=== PATIENT | female | born 1935 | race Caucasian/White ===

== ENCOUNTER 2017-06-22 10:30 | Outpatient (RCR) | payer MEDICARE, OTHER | END 2017-07-11 | disposition home or self-care (01) | LOC: WCC 10:30 | DX: L97.822 Non-pressure chronic ulcer of other part of left lower leg with fat layer exposed (principal); L97.811 Non-pressure chronic ulcer of other part of right lower leg limited to breakdown of skin; E11.622 Type 2 diabetes mellitus with other skin ulcer; I87.2 Venous insufficiency (chronic) (peripheral); I10 Essential (primary) hypertension; Z79.82 Long term (current) use of aspirin | CPT/HCPCS: 29580; G0463 ==

== ENCOUNTER 2017-06-25 12:58 | Outpatient (CLI) | payer MEDICARE, OTHER ==
--- NOTE | 2017-06-28 23:13 | Diagnostic Imaging Report ---
APPROVED REPORT CPT Code: 74624 Symptoms Non-healing Ulcer : Bilaterally RIGHT LEG: Common femoral artery waveform analysis is within normal limits at rest. Color flow duplex sonography reveals calcification throughout the superficial femoral artery. There is no evidence of significant occlusion within this segment. A mild (40-49%) stenosis is seen in the distal superficial femoral artery. The popliteal artery is patent. The tibioperoneal trunk was not well visualized. The distal posterior, anterior and dorsalis pedis arteries are also mildly calcified. Ankle Brachial Index was unobtainable due to ulcers. The Doppler tibial artery waveform analysis is compatible with moderate ischemia at rest. LEFT LEG: Common femoral artery waveform analysis is within normal limits at rest. Color flow duplex sonography reveals calcification throughout the superficial femoral artery. There is no evidence of significant occlusion within this segment. A mild (30%) stenosis is seen in the distal superficial femoral artery. The popliteal artery is patent. The tibioperoneal trunk was not well visualized. The distal posterior, anterior and dorsalis pedis arteries are also mildly calcified. Ankle Brachial Index was unobtainable due to ulcers. The Doppler tibial artery waveform analysis is compatible with moderate ischemia at rest.
--- NOTE | 2017-06-28 23:14 | Diagnostic Imaging Report ---
APPROVED REPORT CPT Code: 16765 Present Symptoms Comments: Hx of BLE ulcers BILATERAL: Imaging reveals a patent deep venous system bilaterally. There is no evidence of thrombus within the femoral, popliteal or tibial segments. The greater saphenous veins are also within normal limits. Doppler indicates normal spontaneous flow within these segments. Venous reflux study: Bilateral deep and superficial venous system is evaluated for venous reflux study. There is an evidence of venous reflux within the deep and superficial venous system. The reflux was lasted longer than 0.5 seconds in the common femoral, popliteal, and greater saphenous veins. Technically difficult study due to pain ([id number] thigh and calf area).
== END 2017-06-25 14:58 | disposition home or self-care (01) ==
LOC: VAS 12:58
DX: L97.929 Non-pressure chronic ulcer of unspecified part of left lower leg with unspecified severity (principal); L97.919 Non-pressure chronic ulcer of unspecified part of right lower leg with unspecified severity
CPT/HCPCS: 93925; 93970

== ENCOUNTER 2018-01-18 10:07 | Outpatient (RCR) | payer MEDICARE, OTHER ==
[2018-02-01] MEDS ORDERED: NORVASC10 MG ORAL (13:41)
[2018-02-01] MEDS ORDERED: ASPIRIN-LOW81 MG ORAL (13:41)
[2018-02-01] MEDS ORDERED: CLONIDINE HCL0.1 MG PO (13:41)
[2018-02-01] MEDS ORDERED: magnesium oxide PO (13:41)
[2018-02-01] MEDS ORDERED: bistolic PO (13:41)
[2018-02-01] MEDS ORDERED: NAXIUM PO (13:41)
[2018-02-01] MEDS ORDERED: TRULICITY1.5 MG/0.5 SQ (13:41)
[2018-02-01] MEDS ORDERED: BACLOFEN10 MG ORAL (13:41)
[2018-02-01] MEDS ORDERED: FOLIC ACID1 M1 PO (13:41)
[2018-02-01] MEDS ORDERED: LASIX40 MG ORAL (13:41)
[2018-02-01] MEDS ORDERED: ULORIC40 MG ORAL (13:41)
[2018-02-01] MEDS ORDERED: VITAMIN B COMP1 EAC2 ORAL (13:41)
[2018-02-01] MEDS ORDERED: LEVEMIR FL100 UNIT/2 SQ (13:41)
[2018-02-01] MEDS ORDERED: VITAMIN D1000 UNI1 ORAL (13:41)
[2018-02-01] MEDS ORDERED: CRESTOR10 M2 ORAL (13:41)
[2018-02-01] MEDS ORDERED: WELLBUTRIN XL150 M1 ORAL (13:41)
[2018-02-01] MEDS ORDERED: TRADJENTA5 MG PO ×2 (13:41→19:40)
[2018-02-01] MEDS ORDERED: FETZIMA40 MG PO (13:41)
[2018-02-01] MEDS ORDERED: GLIPIZIDE10 MG PO (13:41)
[2018-02-01] MEDS ORDERED: potassium PO (13:41)
[2018-02-01] MEDS ORDERED: [UNRECOGNIZED DRUG - OTHER] PO (13:41)
[2018-02-01] MEDS ORDERED: NEXIUM40 MG ORAL (19:40)
[2018-02-04] MEDS ORDERED: DOXYCYCLINE MO100 M2 PO (12:22)
== END 2018-02-08 | disposition home or self-care (01) ==
LOC: WCC 10:07
DX: L03.115 Cellulitis of right lower limb (principal); L03.116 Cellulitis of left lower limb; E11.9 Type 2 diabetes mellitus without complications; I10 Essential (primary) hypertension; S81.801A Unspecified open wound, right lower leg, initial encounter; X58.XXXA Exposure to other specified factors, initial encounter; Z79.82 Long term (current) use of aspirin
CPT/HCPCS: G0463 ×3

== ENCOUNTER 2018-02-01 11:34 | Inpatient (IN) | payer MEDICARE, OTHER ==
[~2018-02-01] VITALS: Ht 149.9 cm; Wt 92.1 kg
[2018-02-01 12:15] VITALS: BP 150/83
[2018-02-01] MEDS ORDERED: FETZIMA40 MG PO (13:41)
[2018-02-01] MEDS ORDERED: VITAMIN D1000 UNI1 ORAL (13:41)
[2018-02-01] MEDS ORDERED: NAXIUM PO (13:41)
[2018-02-01] MEDS ORDERED: CRESTOR10 M2 ORAL (13:41)
[2018-02-01] MEDS ORDERED: WELLBUTRIN XL150 M1 ORAL (13:41)
[2018-02-01] MEDS ORDERED: LASIX40 MG ORAL (13:41)
[2018-02-01] MEDS ORDERED: NORVASC10 MG ORAL (13:41)
[2018-02-01] MEDS ORDERED: bistolic PO (13:41)
[2018-02-01] MEDS ORDERED: VITAMIN B COMP1 EAC2 ORAL (13:41)
[2018-02-01] MEDS ORDERED: [UNRECOGNIZED DRUG - OTHER] PO (13:41)
[2018-02-01] MEDS ORDERED: ULORIC40 MG ORAL (13:41)
[2018-02-01] MEDS ORDERED: GLIPIZIDE10 MG PO (13:41)
[2018-02-01] MEDS ORDERED: FOLIC ACID1 M1 PO (13:41)
[2018-02-01] MEDS ORDERED: ASPIRIN-LOW81 MG ORAL (13:41)
[2018-02-01] MEDS ORDERED: potassium PO (13:41)
[2018-02-01] MEDS ORDERED: CLONIDINE HCL0.1 MG PO (13:41)
[2018-02-01] MEDS ORDERED: LEVEMIR FL100 UNIT/2 SQ (13:41)
[2018-02-01] MEDS ORDERED: TRADJENTA5 MG PO ×2 (13:41→19:40)
[2018-02-01] MEDS ORDERED: TRULICITY1.5 MG/0.5 SQ (13:41)
[2018-02-01] MEDS ORDERED: BACLOFEN10 MG ORAL (13:41)
[2018-02-01] MEDS ORDERED: magnesium oxide PO (13:41)
[2018-02-01 15:43] LABS: HEMATOCRIT 38.8 % (37.0-47.0); HEMOGLOBIN 13.5 G/DL (12.0-16.0); LYMPHOCYTES % (AUTO) 24.2 % (20.0-45.0); MEAN CORPUSCULAR VOLUME 86 FL (80-99); MONOCYTES % (AUTO) 9.5 % (1.0-10.0); NEUTROPHILS % (AUTO) 62.3 % (45.0-75.0); PLATELET COUNT 365 K/UL (150-450); RED BLOOD COUNT 4.51 M/UL (4.20-5.40); RED CELL DISTRIBUTION WIDTH 13.1 % (11.6-14.8); WHITE BLOOD COUNT 10.7 K/UL (4.8-10.8)
[2018-02-01 15:50] LABS: ANION GAP 11 mmol/L (5-15); BLOOD UREA NITROGEN 38 mg/dL (7-18); CALCIUM 10.2 MG/DL (8.5-10.1); CARBON DIOXIDE 28 MMOL/L (21-32); CHLORIDE 99 MMOL/L (98-107); CREATININE 1.7 MG/DL (0.55-1.30); POTASSIUM 3.3 MMOL/L (3.5-5.1); SODIUM 138 MMOL/L (136-145)
[2018-02-01 16:00] VITALS: BP 140/70
[2018-02-01] MEDS ORDERED: Vancomycin 1.5 GM/D5W 250ML IVPB SCH (17:00)
[2018-02-01] MEDS ORDERED: Piperacillin/Tazobactam 3.375 GM in D5W 110 ML IVPB SCH (17:00)
[2018-02-01] MEDS: GlipiZIDE 10mg tab ORAL SCH (17:05)
[2018-02-01 19:17] VITALS: BP 159/79
[2018-02-01] MEDS ORDERED: NEXIUM40 MG ORAL (19:40)
[2018-02-01] MEDS: Piperacillin/Tazobactam 3.375 GM in D5W 110 ML IVPB SCH (20:42)
[2018-02-01] MEDS: Heparin 5000 units/ml inj SUBQ SCH ×2 (20:43→21:00)
[2018-02-01] MEDS: NovoLOG Insulin Flexpen SUBQ SCH (21:00)
[2018-02-01] MEDS ORDERED: Norco 5mg/325mg tab ORAL PRN (21:45)
[2018-02-01] MEDS: Norco 5mg/325mg tab ORAL PRN (21:57)
--- NOTE | 2018-02-01 22:00 | History and Physical Report ---
DATE OF ADMISSION: 02/01/2018 REASON FOR ADMISSION: Cellulitis. HISTORY OF PRESENT ILLNESS: The patient is an 82-year-old female, who has been treated at the wound care center. The patient with lack of improvement overall with outpatient management, outpatient therapy, and wound care. The patient had been admitted for IV antibiotics and further evaluation and therapy, as she has failed outpatient therapy over the past several days. The care was discussed with Dr. Dixon, who has been caring for her and orders for admission had been undertaken. PAST MEDICAL HISTORY: Notable for hypertension, hypercholesterolemia, chronic pain, depression, and diabetes. MEDICATIONS: Reviewed. ALLERGIES: Reviewed. SOCIAL HISTORY: Lives at home. Retired. Nonsmoker and nondrinker. REVIEW OF SYSTEMS: All 10 points reviewed and otherwise negative. PHYSICAL EXAMINATION: GENERAL: A well-developed female, otherwise comfortable. VITAL SIGNS: Otherwise reviewed. Blood pressure 150/83, pulse 96, respirations 20, and saturations 99%. HEENT: Overall negative. NECK: Supple. No adenopathy. Oropharynx is moist. LUNGS: No rhonchi or wheezes. CARDIAC: Normal S1 and S2. Regular rate and rhythm without murmurs, rubs, or gallops. ABDOMEN: Soft, nontender, and nondistended. EXTREMITIES: No cyanosis or clubbing. Noted lower extremity cellulitis. LABORATORY AND DIAGNOSTIC DATA: Lab data reviewed. IMPRESSION: 1. Persistent lower extremity cellulitis, not improving. 2. Diabetes. 3. Hypertension. 4. Hypercholesterolemia. 5. Evidence of chronic renal insufficiency. 6. Mild hypercalcemia. RECOMMENDATION: We will obtain sliding scale insulin. IV antibiotics. ID evaluation. Replace potassium. Monitor clinically. Monitor laboratories and recommend further. Obtain free calcium and follow for further changes in intervention and ongoing recommendations and discharge once the patient improves and stabilized. Ye Santos M.D. DR: ALEKSANDRA JOB#: [id number] CC: GLORY
[2018-02-02] VITALS (8 sets, daily range): BP systolic 129–172; BP diastolic 66–80
[2018-02-02] MEDS: Piperacillin/Tazobactam 3.375 GM in D5W 110 ML IVPB SCH (03:41)
[2018-02-02] MEDS: NovoLOG Insulin Flexpen SUBQ SCH ×4 (06:08→21:00)
[2018-02-02] MEDS: GlipiZIDE 10mg tab ORAL SCH ×2 (06:08→17:41)
[2018-02-02 07:52] LABS: ANION GAP 10 mmol/L (5-15); BLOOD UREA NITROGEN 39 mg/dL (7-18); CALCIUM 10.1 MG/DL (8.5-10.1); CARBON DIOXIDE 30 MMOL/L (21-32); CHLORIDE 99 MMOL/L (98-107); CREATININE 1.7 MG/DL (0.55-1.30); POTASSIUM 3.5 MMOL/L (3.5-5.1); SODIUM 139 MMOL/L (136-145)
--- NOTE | 2018-02-02 08:06 | General Progress Note ---
Assessment/Plan Assessment/Plan IMPRESSION: 1. Persistent lower extremity cellulitis, 2. Diabetes. 3. Hypertension. 4. Hypercholesterolemia. 5. Evidence of chronic renal insufficiency. 6. Mild hypercalcemia. PLAN await repeat labs local care ID evaluation Iv antibiotics monitor for improvement and dc with impression, plan, and exam edited and reviewed in detail care discussed with RN Subjective Allergies: Coded Allergies: No Known Allergies (Unverified , 02/01/18) Subjective care noted ID contacted Objective Last 24 Hour Vital Signs Date Time Temp Pulse Resp B/P (MAP) Pulse Ox O2 Delivery O2 Flow Rate FiO2 02/02/18 04:24 Room Air 02/02/18 04:00 96.0 64 16 145/69 97 96.0 02/02/18 01:06 Room Air 02/02/18 00:00 96.7 64 17 147/73 98 96.7 02/01/18 23:05 97.5 02/01/18 20:42 159/79 02/01/18 20:00 Room Air 02/01/18 19:17 97.5 69 20 159/79 97 Room Air 97.5 02/01/18 16:00 98.0 66 20 140/70 99 Room Air 98.0 02/01/18 12:15 96.6 69 20 150/83 99 Room Air 96.6 Intake and Output 02/01/18 02/02/18 19:00 07:00 Intake Total 500 ml 192.5 ml Balance 500 ml 192.5 ml Intake Oral 500 ml IV Total 192.5 ml # Voids 2 1 Laboratory Tests 02/01/18 15:00: White Blood Count 10.7, Red Blood Count 4.51, Hemoglobin 13.5, Hematocrit 38.8, Mean Corpuscular Volume 86, Mean Corpuscular Hemoglobin 29.9, Mean Corpuscular Hemoglobin Concent 34.7, Red Cell Distribution Width 13.1, Platelet Count 365, Mean Platelet Volume 6.3L, Neutrophils (%) (Auto) 62.3, Lymphocytes (%) (Auto) 24.2, Monocytes (%) (Auto) 9.5, Eosinophils (%) (Auto) 3.0, Basophils (%) (Auto ) 1.0, Sodium Level 138, Potassium Level 3.3L, Chloride Level 99, Carbon Dioxide Level 28, Anion Gap 11, Blood Urea Nitrogen 38H, Creatinine 1.7H, Estimat Glomerular Filtration Rate , Glucose Level 122H, Calcium Level 10.2H 02/02/18 05:15: Sodium Level 139, Potassium Level 3.5, Chloride Level 99, Carbon Dioxide Level 30, Anion Gap 10, Blood Urea Nitrogen 39H, Creatinine 1.7H, Estimat Glomerular Filtration Rate , Glucose Level 140H, Calcium Level 10.1, Ionized Calcium ( Measured) [Pending] Height (Feet): 4 Height (Inches): 11.00 Weight (Pounds): 203 Objective GENERAL: A well-developed female, otherwise comfortable. NAD HEENT: Overall negative. NECK: Supple. No adenopathy. Oropharynx is moist. LUNGS: No rhonchi or wheezes. CARDIAC: Normal S1 and S2. Regular rate and rhythm without murmurs, rubs, or gallops. ABDOMEN: Soft, nontender, and nondistended. EXTREMITIES: No cyanosis or clubbing. Noted lower extremity cellulitis. BAL FLORES Feb 02, 2018 08:06
[2018-02-02] MEDS: Aspirin Baby 81mg ORAL SCH (08:25)
[2018-02-02] MEDS: Furosemide 40mg tab ORAL SCH (08:28)
[2018-02-02] MEDS: Magnesium Oxide 400mg tab ORAL SCH (08:29)
[2018-02-02] MEDS: Vitamin B Complex Tab ORAL SCH (08:29)
[2018-02-02] MEDS: BuPROPion XL 300mg tab ORAL SCH (08:29)
[2018-02-02] MEDS: Atorvastatin 20mg tab ORAL SCH (08:29)
[2018-02-02] MEDS: Ascorbic Acid 500mg tab ORAL SCH (08:30)
[2018-02-02] MEDS: Vitamin D 1000 IU Tab ORAL SCH (08:31)
[2018-02-02] MEDS: Heparin 5000 units/ml inj SUBQ SCH ×2 (08:32→20:00)
[2018-02-02] MEDS: Levemir Flexpen SUBQ SCH (08:33)
[2018-02-02] MEDS: Cefepime HCl 2 GM in D5W 110 ML IVPB SCH (11:37)
--- NOTE | 2018-02-02 12:30 | Consultation ---
DATE OF CONSULTATION: 02/02/2018 INFECTIOUS DISEASE CONSULTATION CONSULTING PHYSICIAN: Manny Waters M.D. REFERRING PHYSICIAN: Ye Santos M.D. REASON FOR CONSULTATION: Bilateral leg cellulitis. HISTORY OF PRESENTING ILLNESS: This is an 82-year-old lady with history of hypertension, hypercholesterolemia, diabetes, depression, who came in with bilateral leg swelling and erythema. She failed outpatient therapy and an Infectious Diseases consultation has been obtained for bilateral leg cellulitis. PAST MEDICAL HISTORY: 1. History of diabetes. 2. Hypertension. 3. Hypercholesterolemia. 4. Depression. SOCIAL HISTORY: She does not smoke, drink, or use drugs. FAMILY HISTORY: Positive for heart disease in her mother. REVIEW OF SYSTEMS: RESPIRATORY: No fever, chills, cough, shortness of breath, or chest pain. CARDIAC: No chest pain. No palpitations. No dizziness. No syncope. GASTROINTESTINAL: No nausea. No vomiting. No abdominal pain or diarrhea. MUSCULOSKELETAL: She denies any pain. MEDICATIONS: As an inpatient, she is on aspirin, Lasix, baclofen, vitamin D, amlodipine, folic acid, bupropion, ascorbic acid, potassium, Protonix, magnesium oxide, Lipitor, nebivolol, [place], subcutaneous heparin, clonidine, insulin, Zosyn, IV vancomycin, glipizide. ALLERGIES: No known drug allergies. PHYSICAL EXAMINATION: VITAL SIGNS: Temperature of 97.2, T-max of 98, pulse of 62, respiratory rate 16, blood pressure 149/62, O2 saturation of 96%. HEENT: Pupils equally reactive to light and accommodation. Mouth appears clean without thrush. NECK: Supple. No adenopathy. No JVD. CARDIOVASCULAR: Regular rate and rhythm. No murmurs. LUNGS: Clear to auscultation bilaterally. No crackles. No wheezes. ABDOMEN: Soft and nontender. No organomegaly. EXTREMITIES: No cyanosis. No clubbing. Edema noted bilaterally with bilateral leg erythema. LABORATORY AND DIAGNOSTIC DATA: White count 10.7, hemoglobin 13.5, hematocrit 38.8, MCV 86, platelet count of 365,000 with neutrophils of 62%. Sodium 139, potassium 3.5, chloride 99, bicarbonate 30, BUN 39, creatinine 1.7, glucose 140, calcium 10.1. ASSESSMENT: 1. This is an 82-year-old lady with history of diabetes and hypertension, who comes in with bilateral leg cellulitis. 2. Renal insufficiency. PLAN: 1. Continue IV vancomycin. 2. Discontinue Zosyn. 3. We will start the patient on cefepime. 4. We will order wound cultures from the right leg. 5. We will follow up cultures and adjust antibiotics accordingly. I would like to thank Dr. Santos for this consultation. Manny Waters M.D. DR: John JOB#: [id number] CC: Ye Santos M.D.; Fax#: [phone]
[2018-02-03 04:00] VITALS: BP 149/65
[2018-02-03] MEDS: GlipiZIDE 10mg tab ORAL SCH ×2 (06:12→16:50)
[2018-02-03] MEDS: NovoLOG Insulin Flexpen SUBQ SCH ×4 (06:18→20:56)
[2018-02-03 08:00] VITALS: BP 120/85
--- NOTE | 2018-02-03 08:08 | General Progress Note ---
Assessment/Plan Assessment/Plan IMPRESSION: 1. Persistent lower extremity cellulitis, with chronic changes 2. Diabetes. 3. Hypertension. 4. Hypercholesterolemia. 5. Evidence of chronic renal insufficiency. 6. Mild hypercalcemia. PLAN await clearance wound care ID evaluation Iv antibiotics monitor for improvement and dc with patient wants to go home impression, plan, and exam edited and reviewed in detail care discussed with RN Subjective Allergies: Coded Allergies: No Known Allergies (Unverified , 02/01/18) Subjective care noted ID noted Objective Last 24 Hour Vital Signs Date Time Temp Pulse Resp B/P (MAP) Pulse Ox O2 Delivery O2 Flow Rate FiO2 02/03/18 08:00 97.9 69 19 120/85 95 97.9 02/03/18 04:00 97.6 67 18 149/65 99 97.6 02/02/18 23:56 97.7 69 18 153/66 98 97.7 02/02/18 21:59 70 154/68 02/02/18 20:19 Room Air 02/02/18 20:13 172/68 02/02/18 20:00 97.2 78 18 172/68 94 97.2 02/02/18 16:00 97.0 71 19 133/80 95 97.0 02/02/18 12:00 97.5 70 18 129/76 96 97.5 02/02/18 08:30 149/62 02/02/18 08:28 62 149/62 Intake and Output 02/02/18 02/03/18 19:00 07:00 Intake Total 480 ml 310 ml Balance 480 ml 310 ml Intake Oral 480 ml 310 ml # Voids 3 3 Labs Test 02/01/18 15:00 02/02/18 05:15 White Blood Count 10.7 K/UL (4.8-10.8) Red Blood Count 4.51 M/UL (4.20-5.40) Hemoglobin 13.5 G/DL (12.0-16.0) Hematocrit 38.8 % (37.0-47.0) Mean Corpuscular Volume 86 FL (80-99) Mean Corpuscular Hemoglobin 29.9 PG (27.0-31.0) Mean Corpuscular Hemoglobin Concent 34.7 G/DL (32.0-36.0) Red Cell Distribution Width 13.1 % (11.6-14.8) Platelet Count 365 K/UL (150-450) Mean Platelet Volume 6.3 FL (6.5-10.1) Neutrophils (%) (Auto) 62.3 % (45.0-75.0) Lymphocytes (%) (Auto) 24.2 % (20.0-45.0) Monocytes (%) (Auto) 9.5 % (1.0-10.0) Eosinophils (%) (Auto) 3.0 % (0.0-3.0) Basophils (%) (Auto) 1.0 % (0.0-2.0) Sodium Level 138 MMOL/L (136-145) 139 MMOL/L (136-145) Potassium Level 3.3 MMOL/L (3.5-5.1) 3.5 MMOL/L (3.5-5.1) Chloride Level 99 MMOL/L (98-107) 99 MMOL/L (98-107) Carbon Dioxide Level 28 MMOL/L (21-32) 30 MMOL/L (21-32) Anion Gap 11 mmol/L (5-15) 10 mmol/L (5-15) Blood Urea Nitrogen 38 mg/dL (7-18) 39 mg/dL (7-18) Creatinine 1.7 MG/DL (0.55-1.30) 1.7 MG/DL (0.55-1.30) Estimat Glomerular Filtration Rate mL/min (>60) mL/min (>60) Glucose Level 122 MG/DL (74-106) 140 MG/DL (74-106) Calcium Level 10.2 MG/DL (8.5-10.1) 10.1 MG/DL (8.5-10.1) Ionized Calcium (Measured) 1.13 mmol/L (1.10-1.35) Height (Feet): 4 Height (Inches): 11.00 Weight (Pounds): 203 Objective GENERAL: A well-developed female, otherwise comfortable. NAD HEENT: Overall negative. NECK: Supple. No adenopathy. Oropharynx is moist. LUNGS: No rhonchi or wheezes. CARDIAC: Normal S1 and S2. Regular rate and rhythm without murmurs, rubs, or gallops. ABDOMEN: Soft, nontender, and nondistended. EXTREMITIES: No cyanosis or clubbing. Noted lower extremity cellulitis and chronic changes ISHAAYA,BAL Feb 03, 2018 08:08
[2018-02-03] MEDS: Vitamin D 1000 IU Tab ORAL SCH (08:43)
[2018-02-03] MEDS: Magnesium Oxide 400mg tab ORAL SCH (08:44)
[2018-02-03] MEDS: Vitamin B Complex Tab ORAL SCH (08:44)
[2018-02-03] MEDS: Ascorbic Acid 500mg tab ORAL SCH (08:44)
[2018-02-03] MEDS: Aspirin Baby 81mg ORAL SCH (08:44)
[2018-02-03] MEDS: Atorvastatin 20mg tab ORAL SCH (08:45)
[2018-02-03] MEDS: Heparin 5000 units/ml inj SUBQ SCH ×2 (08:46→20:55)
[2018-02-03] MEDS: Furosemide 40mg tab ORAL SCH (08:47)
[2018-02-03] MEDS: BuPROPion XL 300mg tab ORAL SCH (08:47)
[2018-02-03] MEDS: Levemir Flexpen SUBQ SCH (08:52)
--- NOTE | 2018-02-03 10:18 | Infectious Diseases Prog Note ---
Assessment/Plan Assessment/Plan antibiotics : vancomycin iv, cefepime A 1. leg cellulitis bilaterally 2. diabetes mellitus 3, hypertension 4. renal insufficiency P 1. continue vancomycin iv, cefepime 2, will follow up cultures Subjective ROS Limited/Unobtainable: Yes Allergies: Coded Allergies: No Known Allergies (Unverified , 02/01/18) Objective Vital Signs Last 24 Hour Vital Signs Date Time Temp Pulse Resp B/P (MAP) Pulse Ox O2 Delivery O2 Flow Rate FiO2 02/03/18 08:47 120/85 02/03/18 08:44 69 120/85 02/03/18 08:00 97.9 69 19 120/85 95 97.9 02/03/18 04:00 97.6 67 18 149/65 99 97.6 02/02/18 23:56 97.7 69 18 153/66 98 97.7 02/02/18 21:59 70 154/68 02/02/18 20:19 Room Air 02/02/18 20:13 172/68 02/02/18 20:00 97.2 78 18 172/68 94 97.2 02/02/18 16:00 97.0 71 19 133/80 95 97.0 02/02/18 12:00 97.5 70 18 129/76 96 97.5 Height (Feet): 4 Height (Inches): 11.00 Weight (Pounds): 203 Respiratory/Chest: lungs clear Cardiovascular: normal rate, regular rhythm, no gallop/murmur Abdomen: soft, non tender Extremities: other - + erythema of legs bilaterally Current Medications Medications (Trade) Dose Ordered Sig/Tom Route PRN Reason Start Time Stop Time Status Last Admin Dose Admin Acetaminophen/ Hydrocodone Bitart ([place] 5/325) 1 tab Q4H PRN ORAL Moderate Pain (Pain Scale 4-6) 02/01/18 21:45 02/08/18 21:44 02/01/18 21:57 Acetaminophen/ Hydrocodone Bitart ([place] 5/325) 2 tab Q4H PRN ORAL Severe Pain (Pain Scale 7-10) 02/01/18 21:45 02/08/18 21:44 Amlodipine Besylate (Norvasc) 10 mg DAILY ORAL 02/02/18 09:00 03/04/18 08:59 02/03/18 08:44 Ascorbic Acid (Vitamin C) 500 mg DAILY ORAL 02/02/18 09:00 03/04/18 08:59 02/03/18 08:44 Aspirin (ASA) 81 mg DAILY ORAL 02/02/18 09:00 03/04/18 08:59 02/03/18 08:44 Atorvastatin Calcium (Lipitor) 20 mg DAILY ORAL 02/02/18 09:00 03/04/18 08:59 02/03/18 08:45 Baclofen (Lioresal) 10 mg DAILY ORAL 02/02/18 09:00 03/04/18 08:59 02/03/18 08:44 Bupropion HCl (Wellbutrin XL) 300 mg DAILY ORAL 02/02/18 09:00 03/04/18 08:59 02/03/18 08:47 Cefepime HCl 2 gm/ Dextrose 110 ml @ 220 mls/hr Q24H IVPB 02/02/18 12:00 02/09/18 11:59 02/02/18 11:37 Clonidine HCl (Catapres Tab) 0.1 mg Q12HR ORAL 02/01/18 21:00 03/03/18 20:59 02/02/18 20:13 Dextrose (Dextrose 50%) 25 ml STAT PRN IV Hypoglycemia 02/01/18 18:30 03/03/18 18:29 Dextrose (Dextrose 50%) 50 ml STAT PRN IV Hypoglycemia 02/01/18 18:30 03/03/18 18:29 Folic Acid (Folate) 1 mg DAILY ORAL 02/02/18 09:00 03/04/18 08:59 02/03/18 08:44 Furosemide (Lasix) 40 mg DAILY ORAL 02/02/18 09:00 03/04/18 08:59 02/03/18 08:47 Glipizide (Glucotrol) 10 mg BIAC ORAL 02/01/18 16:30 03/03/18 16:29 02/03/18 06:12 Heparin Sodium (Porcine) (Heparin 5000 units/ml) 5,000 units EVERY 12 HOURS SUBQ 02/01/18 21:00 03/03/18 20:59 02/03/18 08:46 Insulin Aspart (NovoLOG) BEFORE MEALS AND HS SUBQ 02/01/18 21:00 03/03/18 20:59 02/03/18 06:18 Insulin Detemir (Levemir) 15 units DAILY SUBQ 02/02/18 09:00 03/04/18 08:59 02/03/18 08:52 Magnesium Oxide (Mag-Ox 400mg) 400 mg DAILY ORAL 02/02/18 09:00 03/04/18 08:59 02/03/18 08:44 Nebivolol (Bystolic) 10 mg DAILY ORAL 02/02/18 09:00 03/04/18 08:59 02/03/18 08:44 Pantoprazole (Protonix) 40 mg DAILY ORAL 02/02/18 09:00 03/04/18 08:59 02/03/18 08:43 Patient Own Medication (Patient's Own Med) 1 ea DAILY ORAL 02/02/18 11:00 03/04/18 10:59 02/03/18 08:58 Patient Own Medication (Patient's Own Med) 1 ea DAILY ORAL 02/02/18 11:00 03/04/18 10:59 02/03/18 08:58 Patient Own Medication (Patient's Own Med) 1 ea QPM ORAL 02/02/18 16:30 03/04/18 16:29 02/02/18 17:42 Patient Own Medication (Patient's Own Med) 1 ea Th@0900 SUBQ 02/04/18 09:00 03/06/18 08:59 Potassium Chloride (K-Dur) 10 meq DAILY ORAL 02/02/18 09:00 03/04/18 08:59 02/03/18 08:44 Vancomycin HCl (Vanco rx to dose) 1 ea DAILY PRN MISC Per rx protocol 02/01/18 14:00 03/03/18 13:59 Vancomycin HCl/ Dextrose 250 ml @ 166.667 mls/hr Q48H IVPB 02/03/18 17:00 02/08/18 16:59 Vitamin B Complex (Vitamin B Complex) 1 tab DAILY ORAL 02/02/18 09:00 03/04/18 08:59 02/03/18 08:44 Vitamin D (Vitamin D) 5,000 intlu DAILY ORAL 02/02/18 09:00 03/04/18 08:59 02/03/18 08:43 DARRION BARRERA Feb 03, 2018 10:18
[2018-02-03 12:00] VITALS: BP 141/65
[2018-02-03] MEDS: Cefepime HCl 2 GM in D5W 110 ML IVPB SCH (12:14)
[2018-02-03 15:57] VITALS: BP_SYST 125; BP_SYST 153; BP_DIAS 62; BP_DIAS 69
[2018-02-03] MEDS: Norco 5mg/325mg tab ORAL PRN (16:50)
[2018-02-03] MEDS ORDERED: Vancomycin 1250mg/D5W 250ml IVPB SCH (17:00)
[2018-02-03 20:00] VITALS: BP 177/72
[2018-02-04 04:00] VITALS: BP 163/71
[2018-02-04] MEDS: GlipiZIDE 10mg tab ORAL SCH (06:18)
[2018-02-04] MEDS: NovoLOG Insulin Flexpen SUBQ SCH ×2 (06:19→11:30)
--- NOTE | 2018-02-04 07:13 | General Progress Note ---
Assessment/Plan Assessment/Plan IMPRESSION: 1. Persistent lower extremity cellulitis, with chronic changes 2. Diabetes. 3. Hypertension. 4. Hypercholesterolemia. 5. Evidence of chronic renal insufficiency. 6. Mild hypercalcemia. PLAN ID clearance noted wound care po doxy on discharge monitor for improvement and dc with hh patient wants to go home impression, plan, and exam edited and reviewed in detail care discussed with RN Subjective Allergies: Coded Allergies: No Known Allergies (Unverified , 02/01/18) Subjective care noted ID noted and clearance noted Objective Last 24 Hour Vital Signs Date Time Temp Pulse Resp B/P (MAP) Pulse Ox O2 Delivery O2 Flow Rate FiO2 02/04/18 06:26 163/71 02/04/18 04:00 98.1 73 19 163/71 99 98.1 02/03/18 21:00 177/72 02/03/18 20:00 98.0 67 19 177/72 100 98.0 02/03/18 16:00 Room Air 02/03/18 15:57 97.8 66 20 153/69 99 97.8 02/03/18 12:00 Room Air 02/03/18 12:00 96.8 96 16 141/65 98 96.8 02/03/18 08:47 120/85 02/03/18 08:44 69 120/85 02/03/18 08:00 Room Air 02/03/18 08:00 97.9 69 19 120/85 95 97.9 Intake and Output 02/03/18 02/04/18 19:00 07:00 Intake Total 480 ml 380 ml Balance 480 ml 380 ml Intake Oral 480 ml 380 ml # Voids 3 4 Labs Test 02/01/18 15:00 02/02/18 05:15 White Blood Count 10.7 K/UL (4.8-10.8) Red Blood Count 4.51 M/UL (4.20-5.40) Hemoglobin 13.5 G/DL (12.0-16.0) Hematocrit 38.8 % (37.0-47.0) Mean Corpuscular Volume 86 FL (80-99) Mean Corpuscular Hemoglobin 29.9 PG (27.0-31.0) Mean Corpuscular Hemoglobin Concent 34.7 G/DL (32.0-36.0) Red Cell Distribution Width 13.1 % (11.6-14.8) Platelet Count 365 K/UL (150-450) Mean Platelet Volume 6.3 FL (6.5-10.1) Neutrophils (%) (Auto) 62.3 % (45.0-75.0) Lymphocytes (%) (Auto) 24.2 % (20.0-45.0) Monocytes (%) (Auto) 9.5 % (1.0-10.0) Eosinophils (%) (Auto) 3.0 % (0.0-3.0) Basophils (%) (Auto) 1.0 % (0.0-2.0) Sodium Level 138 MMOL/L (136-145) 139 MMOL/L (136-145) Potassium Level 3.3 MMOL/L (3.5-5.1) 3.5 MMOL/L (3.5-5.1) Chloride Level 99 MMOL/L (98-107) 99 MMOL/L (98-107) Carbon Dioxide Level 28 MMOL/L (21-32) 30 MMOL/L (21-32) Anion Gap 11 mmol/L (5-15) 10 mmol/L (5-15) Blood Urea Nitrogen 38 mg/dL (7-18) 39 mg/dL (7-18) Creatinine 1.7 MG/DL (0.55-1.30) 1.7 MG/DL (0.55-1.30) Estimat Glomerular Filtration Rate mL/min (>60) mL/min (>60) Glucose Level 122 MG/DL (74-106) 140 MG/DL (74-106) Calcium Level 10.2 MG/DL (8.5-10.1) 10.1 MG/DL (8.5-10.1) Ionized Calcium (Measured) 1.13 mmol/L (1.10-1.35) Height (Feet): 4 Height (Inches): 11.00 Weight (Pounds): 203 Objective GENERAL: A well-developed female, otherwise comfortable. NAD HEENT: Overall negative. NECK: Supple. No adenopathy. Oropharynx is moist. LUNGS: No rhonchi or wheezes. CARDIAC: Normal S1 and S2. Regular rate and rhythm without murmurs, rubs, or gallops. ABDOMEN: Soft, nontender, and nondistended. EXTREMITIES: No cyanosis or clubbing. Noted lower extremity cellulitis and chronic changes with some improvement BAL FLORES Feb 04, 2018 07:13
[2018-02-04 08:12] VITALS: BP 170/72
[2018-02-04 09:16] VITALS: BP 165/74
[2018-02-04] MEDS: Aspirin Baby 81mg ORAL SCH (09:28)
[2018-02-04] MEDS: Furosemide 40mg tab ORAL SCH (09:29)
[2018-02-04 09:30] VITALS: BP 165/74
[2018-02-04] MEDS: Atorvastatin 20mg tab ORAL SCH (09:30)
[2018-02-04] MEDS: Magnesium Oxide 400mg tab ORAL SCH (09:30)
[2018-02-04] MEDS: BuPROPion XL 300mg tab ORAL SCH (09:33)
[2018-02-04] MEDS: Vitamin B Complex Tab ORAL SCH (09:33)
[2018-02-04] MEDS: Ascorbic Acid 500mg tab ORAL SCH (09:33)
[2018-02-04] MEDS: Levemir Flexpen SUBQ SCH (09:36)
[2018-02-04] MEDS: Heparin 5000 units/ml inj SUBQ SCH (09:38)
[2018-02-04] MEDS: Vitamin D 1000 IU Tab ORAL SCH (10:18)
[2018-02-04] MEDS ORDERED: DOXYCYCLINE MO100 M2 PO (12:22)
--- NOTE | 2018-02-05 13:22 | Discharge Summary ---
Discharge Summary Discharge Summary Discharge Summary DATE OF ADMISSION: 02/01/2018 DATE OF DISCHARGE: 02/04/2018 CONSULTANTS: Dr. Manny Waters BRIEF HOSPITAL COURSE: Patient is an 82-year-old female, who was treated at the wound care center. Patient had lack of improvement with outpatient management and outpatient therapy wound care. She was admitted for bilateral leg cellulitis with failed outpatient management. She was admitted for IV antibiotics and for further evaluation and therapy. She has medical history notable for hypertension, hypercholesterolemia, chronic pain, depression and diabetes. She was seen by infectious disease specialist. She was given vancomycin and cefepime. Zosyn was discontinued. She was given wound care. Wound culture showed Staphylococcus aureus. She was eventually cleared for discharge to continue doxycycline and for discharge home with home health. FINAL DIAGNOSES: Persistent lower extremity cellulitis with chronic changes and failed outpatient therapy. Diabetes Hypertension Hypercholesterolemia Evidence of chronic renal insufficiency Mild hypercalcemia DISPOSITION: Patient was discharged home with home health. DISCHARGE MEDICATIONS: Refer to Discharge Medication List. Continue with doxycycline 100 mg by mouth twice a day for 10 days. DISCHARGE INSTRUCTIONS: Follow up in a week. Home health to follow I have been assigned to dictate discharge summary on this account, and I was not involved in the patient's management. Samira Ulloa NP Feb 05, 2018 13:22
== END 2018-02-04 12:30 | disposition home health service (06) | DRG 603 ==
LOC: 4W 11:43
DX: L03.116 Cellulitis of left lower limb (principal); L03.115 Cellulitis of right lower limb; B95.61 Methicillin susceptible Staphylococcus aureus infection as the cause of diseases classified elsewhere; E11.9 Type 2 diabetes mellitus without complications; E78.00 Pure hypercholesterolemia, unspecified; I12.9 Hypertensive chronic kidney disease with stage 1 through stage 4 chronic kidney disease, or unspecified chronic kidney disease; N18.9 Chronic kidney disease, unspecified; E83.52 Hypercalcemia
CPT/HCPCS: 36415; 80048; 82330; 85025; 87070; 87205; J1815; J8499; S5561